=== PATIENT | female | born 1995 | race Caucasian/White ===

== ENCOUNTER → 2017-09-14 10:11 | Outpatient (CLI) | payer OTHER, SELFPAY ==
[2017-09-14 13:00] LABS: Internal QC Validated? YES +Cl - CLEAR BKGD; Pregnancy, Urine Negative Negative
== END ==
DX: L70.0 Acne vulgaris (principal); Z79.899 Other long term (current) drug therapy
CPT/HCPCS: 81025

== ENCOUNTER → 2017-10-19 09:36 | Outpatient (CLI) | payer OTHER, SELFPAY ==
[2017-10-19 12:00] LABS: Internal QC Validated? YES +Cl - CLEAR BKGD; Pregnancy, Urine Negative Negative
[2017-10-19 12:42] LABS: Cholesterol 176 mg/dL (200); High Density Lipoprotein 65 mg/dL; Triglycerides 114 mg/dL; Very Low Density Lipoprotein 23 mg/dL (5-40)
== END ==
LOC: MTLAB 09:38
PROVIDERS: Visit Provider Dermatology Pediatric Dermatology
DX: L70.0 Acne vulgaris (principal); L20.84 Intrinsic (allergic) eczema; Z79.899 Other long term (current) drug therapy
CPT/HCPCS: 36415; 80061; 81025

== ENCOUNTER → 2017-11-09 09:16 | Outpatient (CLI) | payer OTHER, SELFPAY ==
[2017-11-09 09:47] LABS: Internal QC Validated? YES +Cl - CLEAR BKGD; Pregnancy, Urine Negative Negative
== END ==
PROVIDERS: Visit Provider Nurse Practitioner Family
DX: L70.0 Acne vulgaris (principal); L20.84 Intrinsic (allergic) eczema; Z79.899 Other long term (current) drug therapy
CPT/HCPCS: 81025